=== PATIENT | male | born 1980 | race Two or more races ===

== ENCOUNTER 2025-04-04 15:00 | Outpatient (RCR) | payer MEDICAID, SELFPAY ==
--- NOTE | 2025-03-14 16:06 | PT.OIERPT ---
PT OP Initial Eval Patient Information Outpatient Physical Therapy Treatment Date: 03/14/25 Visit Reasons: Chronic low back pain Medical Diagnosis: M54.50 Treatment Dx #1: Back Pain Treatment Dx #2: Back Pain Start of Care: 03/14/25 Smoking Status Smoking Status: Never smoker Initial Assessment Subjective: Pt is a 44 y/o male reports of chronic back pain (02/15). 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 Pt has limitation with sitting, standing, chores, working out, recreational activities, and ADLs. Objective: L/S AROM: all motions are WNL except with end range pain into flexion and extension Hip PROM: all motions are WFL except IR Hip MMTs: grossly 4-/5 Special Test (+) redman (+) GEOFFREY's Muscle Length: Hs tightness Assessment: Pt demonstrate back pain with mobility deficits consistent with lumbar facet leading to difficulty with ADLs. 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 Short Term and Plans Examiner Goals 1) Increase L/S AROM WNL in 6 wks to be able to perform chores 2) Decrease back pain to 2/10 in 6 wks to be able to sit and stand more than 30 mins 3) Increase core strength WNL in 6 wks to be able to resume workout routine 4) Increase hip MMTs grossly 4/5 in 6 wks to be able to perform recreational activities 5) Indep with HEP Treatment Plan 1) Manual Therapy 2) Therapeutic Activities 3) Therapeutic Exercises 4) Modalities (ice, heat) Frequency and Duration: 2 x wk for 6 wks Certification Dates: 03/14/25 to 06/14/25 Procedure Charges OP PT Eval Mod Complex 30 minutes: Yes
--- NOTE | 2025-03-26 15:48 | PT.ODAYNRPT ---
PT Outpatient Daily Note OP Daily Note Outpatient Physical Therapy Treatment Date: 03/26/25 Visit Reasons: Chronic low back pain Subjective: Pt reports he did some research on his condition, started doing some exercises and avoiding [place] weights for squatting, avoiding twisting motions. Objective: Please see flow sheet for ther ex list. Assessment: Pt instructed on isometric abdominal exercises keeping spine in neutral and educated to avoid repeated lumbar flexion and excessive lifting, pt agreed. Pt educated and instructed on HEP. Plan: Continue with poC. Assess response to treatment. Length of Time (minutes) of Treatment: 30 Minutes Procedure Charges Therapeutic Exercise 30 minutes: Yes
--- NOTE | 2025-04-04 15:44 | PT.ODAYNRPT ---
PT Outpatient Daily Note OP Daily Note Outpatient Physical Therapy Treatment Date: 04/04/25 Visit Reasons: Chronic low back pain Subjective: Pt's back still hurts and seems to plateau. Pt mentioned he stopped all rotational exercises due to pain. Objective: Please see flow chart for list of ther ex performed Assessment: patient has the tendency to increase lumbar lordosis with all exercises. worked on neutral spine with all exercises today. Pt will need frequent tactile and verbal cue to stay in neutral. Plan: Practice neutral spine with exercises Length of Time (minutes) of Treatment: 30 Minutes Procedure Charges Therapeutic Exercise 30 minutes: Yes
== END 2025-04-07 23:59 | disposition home or self-care (01) ==
LOC: CPTX 15:00
PROVIDERS: PCP Physician Assistant; Referring Provider Physician Assistant; Visit Provider Physician Assistant
DX: M51.360 Other intervertebral disc degeneration, lumbar region with discogenic back pain only (principal)
CPT/HCPCS: 97110; 97162

== ENCOUNTER → 2025-05-21 | Outpatient (CLI) | payer MEDICAID, SELFPAY ==
--- NOTE | 2025-05-21 09:00 | XR_ITS ---
Examination: MRI lumbar spine without contrast Date and time of exam: May 21, 2025 0944 hours INDICATIONS: Low back pain for years getting worse Technique: Multiple MRI axial and sagittal sections lumbar spine. Sagittal T2-weighted images, TR 3500, TE 118 T1 weighted transverse sections, TR 688 T8.5, T2-weighted sagittal sections T1 weighted sagittal sections TR 621, TE 30 T2 axial sections, TR 4, 190, TE 84. Findings: Adequate alignment lumbar vertebral bodies No lumbar fracture Disc desiccation L3-L4, L4-L5 Normal marrow signal lumbar vertebral bodies No spondylolisthesis L5-S1 no disc protrusion L4-L5 5 mm central lumbar disc bulge L3-L4 4 mm left foraminal disc bulge but no ganglionic compression L2-L3 no disc protrusion L1-L2 no disc protrusion IMPRESSION: No lumbar fracture L4-L5 5 mm central lumbar disc bulge L3-L4 4 mm left foraminal disc bulge but no ganglionic compression
== END | disposition home or self-care (01) ==
LOC: SMRI 08:59
PROVIDERS: PCP Family Medicine; Referring Provider Physician Assistant; Visit Provider Physician Assistant
DX: M51.369 Other intervertebral disc degeneration, lumbar region without mention of lumbar back pain or lower extremity pain (principal)
CPT/HCPCS: 72148

== ENCOUNTER → 2025-07-19 | Outpatient (BNVA) | payer MEDICAID, SELFPAY | END | disposition home or self-care (01) | PROVIDERS: PCP Physician Assistant; Referring Provider Physician Assistant; Visit Provider Urology | DX: N40.0 Benign prostatic hyperplasia without lower urinary tract symptoms (principal); N43.42 Spermatocele of epididymis, multiple | CPT/HCPCS: 81003; 99212; G0463 ==